=== PATIENT | male | born 1995 | race Caucasian/White ===

== ENCOUNTER 2017-08-14 11:08 | Emergency (ER) | payer MEDICAID, OTHER ==
[2017-08-14 11:26] VITALS: BP 132/90; PULSE 84; RESP 14; TEMP 99.1; O2SAT 100
--- NOTE | 2017-08-14 11:55 | C.PDOC ---
History Of Present Illness 21 y/o male c/o cough, myalgias, tactile temperature, nasal congestion and malaise for 2-3 days. denies ear pain and throat pain. pt's mother had similar symptoms. Time Seen by Provider: 08/14/17 11:24 Chief Complaint (Nursing): Flu-like Symptoms History Per: Patient History/Exam Limitations: no limitations Onset/Duration Of Symptoms: Days (2-3) Current Symptoms Are (Timing): Still Present Location Of Pain: Diffuse Myalgias Sick Contacts (Context): Family Member(s) Associated Symptoms: Fever (tactile), Cough, Sputum, Sinus Drainage, Nasal Congestion. denies: Sore Throat, Nausea, Vomiting, Diarrhea Ear Symptoms: Bilateral: None Past Medical History Reviewed: Historical Data, Nursing Documentation, Vital Signs Vital Signs: Last Vital Signs Temp 99.1 F 08/14/17 11:17 Pulse 84 08/14/17 11:17 Resp 14 08/14/17 11:17 BP 132/90 08/14/17 11:17 Pulse Ox 100 08/14/17 12:00 - Medical History Other PMH: seasonal allergies Family History: States: Unknown Family Hx - Social History Hx Alcohol Use: Yes Hx Substance Use: No - Immunization History Hx Tetanus Toxoid Vaccination: No Hx Influenza Vaccination: No Hx Pneumococcal Vaccination: No Review Of Systems Constitutional: Positive for: Fever (tactile), Malaise. Negative for: Chills ENT: Positive for: Nose Discharge, Nose Congestion. Negative for: Ear Pain, Throat Pain Cardiovascular: Negative for: Chest Pain Respiratory: Positive for: Cough, Sputum. Negative for: Shortness of Breath Gastrointestinal: Negative for: Nausea, Vomiting, Abdominal Pain, Diarrhea Skin: Negative for: Rash Physical Exam - Physical Exam Appears: Non-toxic, No Acute Distress Skin: Warm, Dry Head: Atraumatic, Normacephalic Eye(s): bilateral: Normal Inspection Ear(s): Left: TM Obscured By Wax, Right: Normal (wax in canal) Nose: Other (congested) Oral Mucosa: Moist Tongue: Normal Appearing Throat: Erythema (mild), No Exudate, Other (right tonsil enlarged) Neck: Supple Cardiovascular: Rhythm Regular, No Murmur Respiratory: No Decreased Breath Sounds, No Rales, No Rhonchi, No Wheezing Gastrointestinal/Abdominal: Bowel Sounds, Soft, No Tenderness Neurological/Psych: Oriented x3, Normal Speech, Normal Cognition ED Course And Treatment O2 Sat by Pulse Oximetry: 100 Medical Decision Making Medical Decision Making: pt with uri symptoms and hx seasonal allergies; lungs cta b/l. will start on flonase, claritin and ibuprofen. f/u med clinic Disposition Counseled Patient/Family Regarding: Diagnosis, Need For Followup - Disposition Referrals: [facility] [place] [Outside] Disposition: HOME/ ROUTINE Disposition Time: 11:57 Condition: GOOD Additional Instructions: Please take Tylenol or Ibuprofen for bodyaches or temperature over 100.4 Increased best rest. Claritin (loratidine) once a day. Use one spray of flonase per nostril two times a day. Please follow up in medical clinic in a few days. Prescriptions: Fluticasone Nasal [Flonase] 1 spr NS BID #1 spr Instructions: Viral Upper Respiratory Infection, Adult (DC) Forms: [facility] ([place]onian), General Discharge Instructions - Clinical Impression Clinical Impression: Upper respiratory infection
== END 2017-08-14 12:05 | disposition home or self-care (01) ==
LOC: C.ER 11:08
DX: J06.9 Acute upper respiratory infection, unspecified (principal)